=== PATIENT | male | born 1980 | race Two or more races ===

== ENCOUNTER 2024-11-06 00:25 | Inpatient (IN) | payer OTHER ==
[~2024-11-06] VITALS: Ht 162.6 cm; Wt 86.7 kg
[2024-11-06 00:26] VITALS: PULSE 34; RESP 11; O2SAT 92
--- NOTE | 2024-11-06 00:35 | ED.PDOC ---
History of Present Illness HPI Comments 44 year old male was BIBA for the c/c of [facility]. Per EMS pt has been sick all day with /D, when he experienced a syncopal episode after using the restroom. EMS notes that someone heard the pt fall and called emergency services. Upon arrival Pt was bradycardic in the 30s and was having 10 beats per minute. Pt has a PMHx of CKF and just received Dialysis yesterday. Pt denies any other associated symptoms, modifiers, recent injuries or sick contacts present at this time. Time Seen by MD: 00:29 Reviewed Notes: Nurses Notes, Junior Web Developer Notes, Medications, Allergies Information Source: Patient, Emergency Med Personnel Mode of Arrival: EMS Severity: Moderate Timing: Hours Duration: Since onset, Hours Prehospital treatment: Other (atropine) Past Medical History PAST MEDICAL HISTORY: CKF Surgical History: Denies all surgeries Family History Family History: Reviewed,noncontributory to illness, No family hx of Cancer, No family hx of DM, No family hx of Heart elliott, No family hx of HTN, No family hx ofKidney elliott, No family hx of Liver elliott, No family hx of Lung elliott, No family hx of Stroke Social History Smoker: Non-Smoker Alcohol: Denies ETOH Use Drugs: Denies Drug Use Lives In: Home Constitutional: denies: chills, diaphoresis, fatigue, fever, malaise, sweats, weakness, others EENTM: denies: blurred vision, double vision, ear bleeding, ear discharge, ear drainage, ear pain, ear ringing, eye pain, eye redness, hearing loss, mouth pain, mouth swelling, nasal discharge, nose bleeding, nose congestion, nose pain, photophobia, tearing, throat pain, throat swelling, voice changes, others Respiratory: denies: cough, hemoptysis, orthopnea, SOB at rest, shortness of breath, SOB with excertion, stridor, wheezing, others Cardiovascular: denies: chest pain, dizzy spells, diaphoresis, Dyspnea on exertion, edema, irregular heart beat, left arm pain, lightheadedness, palpitations, PND, syncope, others Gastrointestinal: reports: diarrhea; denies: abdomen distended, abdominal pain, blood streaked bowels, constipated, dysphagia, difficulty swallowing, hematemesis, melena, nausea, poor appetite, poor fluid intake, rectal bleeding, rectal pain, vomiting, others Genitourinary: denies: burning, dysuria, flank pain, frequency, hematuria, incontinence, penile discharge, penile sore, pain, testicle pain, testicle swelling, urgency, others Neurological: denies: dizziness, fainting, headache, left sided numbness, left sided weakness, numbness, paresthesia, pre-existing deficit, right sided numbness, right sided weakness, seizure, speech problems, tingling, tremors, weakness, others Musculoskeletal: denies: back pain, gout, joint pain, joint swelling, muscle pain, muscle stiffness, neck pain, others Integumetry: denies: bruises, change in color, change in hair/nails, dryness, laceration, lesions, lumps, rash, wounds, others Allergic/Immunocompromised: denies: Difficulty Healing, Frequent Infections, Hives, Itching, others Hematologic/Lymphatic: denies: anemia, blood clots, easy bleeding, easy brui sing, swollen glands, others Endocrine: denies: excessive hunger, excessive sweating, excessive thirst, ex cessive urination, flushing, intolerance to cold, intolerance to heat, unexplained weight gain, unexplained weight loss, others Psychiatric: denies: anxiety, bipolar disorder, depression, hopeless, panic disorder, schizophrenia, sleepless, suicidal, others All Other Systems: Reviewed and Negative Physical Exam General Appearance: Moderate Distress, Normal, Other (Chronic ill appearing) HEENT: Pharynx Normal, TMs Normal Neck: Full Range of Motion, Non-Tender, Normal, Normal Inspection Respiratory: Chest Non-Tender, Lungs Clear, Normal Breath Sounds Cardiovascular: No Edema, No JVD, Regular Rate/Rhythm Breast Exam: Deferred Gastrointestinal: Non Tender, Normal Bowel Sounds, Soft Genitalia: Deferred Pelvic: Deferred Rectal: Deferred Extremities: No calf tenderness, Normal range of motion, Non-tender, No pedal edema Musculoskeletal : Apperance: Normal Neurologic: Alert, No Motor Deficits, Normal Mood Cerebellar Function: Normal Reflexes: Normal Skin: Dry, Normal Color, Warm Lymphatic: No Adenopathy Was a procedure done? Was a procedure done?: No Differential Dx Considerations may include: Differential diagnosis includes but is not limited to: coronary ischemia, dehydration, sepsis, electrolyte abnormality, symptomatic anemia, hypovolemia and others X-Ray, Labs, Meds, VS Vital Signs Date Time Temp Pulse Resp B/P (MAP) Pulse Ox O2 Delivery O2 Flow Rate FiO2 11/06/24 02:30 75 11 111/57 (75) 98 11/06/24 01:45 17 Ambu-Bag 118 11/06/24 01:41 16 97 Nasal Cannula* 2 28 11/06/24 01:10 112 11/06/24 00:40 97.1 46 10 115/70 (85) 100 97.1 11/06/24 00:32 31 11/06/24 00:26 34 11 92 Room Air* 0 21 11/06/24 00:26 97.1 34 11 106/47 (66) 92 97.1 Lab Test 11/06/24 02:20 11/06/24 01:26 11/06/24 00:30 Range/Units Lactic Acid Level 1.6 2.7 *H 0.4-2.0 mmol/L Troponin I High Sensitivity 61 *H 54 </=54 ng/L White Blood Count 6.0 4.4-10.8 10^3/uL Red Blood Count 4.06 L 4.5-5.90 10^6/uL Hemoglobin 11.3 L 13.5-17.5 g/dL Hematocrit 35.7 L 41.0-53.0 % Mean Corpuscular Volume 88.0 80.0-100.0 fL Mean Corpuscular Hemoglobin 28.0 28.0-32.0 pg Mean Corpuscular Hemoglobin Concent 31.8 L 32.0-36.0 g/dL Red Cell Distribution Width 19.8 H 11.8-14.3 % Platelet Count 133 L 140-450 10^3/uL Mean Platelet Volume 7.6 6.9-10.8 fL Neutrophils (%) (Auto) 68.3 37.0-80.0 % Lymphocytes (%) (Auto) 16.5 10.0-50.0 % Monocytes (%) (Auto) 10.9 0.0-12.0 % Eosinophils (%) (Auto) 3.8 0.0-7.0 % Basophils (%) (Auto) 0.5 0.0-2.0 % Neutrophils # (Auto) 4.1 1.6-8.6 10 ^3/uL Lymphocytes # (Auto) 1.0 0.4-5.4 10 ^3/uL Monocytes # (Auto) 0.7 0-1.3 10 ^3/uL Eosinophils # (Auto) 0.2 0-0.8 10 ^3/uL Basophils # (Auto) 0 0-0.2 10 ^3/uL Nucleated Red Blood Cells 0.0 % Prothrombin Time 11.3 9.3-11.8 sec Prothrombin Time INR 1.07 0.9-1.15 Activated Partial Thromboplast Time 25.9 24.5-34.5 SEC Sodium Level 135 L 136-145 mmol/L Potassium Level 7.2 *H 3.5-5.1 mmol/L Chloride Level 99 98-107 mmol/L Carbon Dioxide Level 24 20-31 mmol/L Anion Gap 12 5-15 Blood Urea Nitrogen 67 H 9-23 mg/dL Creatinine 7.28 H 0.700-1.30 mg/dL Glomerular Filtration Rate Calc 9 >90 mL/min BUN/Creatinine Ratio 9.2 L 10.0-20.0 Serum Glucose 373 H 74-106 mg/dL Calcium Level 9.3 8.7-10.4 mg/dL Total Bilirubin 0.4 0.2-1.0 mg/dL Aspartate Amino Transferase (AST) 29 13-40 U/L Alanine Aminotransferase (ALT) 18 7-40 U/L Alkaline Phosphatase 164 H 46-116 U/L Total Protein 7.6 5.7-8.2 g/dL Albumin 4.4 3.2-4.8 g/dL Current Medications Medications (Trade) Dose Ordered Sig/Yovany Route Start Time Stop Time Status Last Admin Sodium Chloride 1,000 ml @ 1,000 mls/hr Q1H ONCE IVB 11/06/24 00:30 11/06/24 01:29 DC 11/06/24 00:47 Insulin Human Regular (InsuLIN R) 10 units ONCE ONCE IV 11/06/24 01:30 11/06/24 01:31 DC 11/06/24 01:50 Dextrose 50 ml ONCE ONCE IV 11/06/24 01:30 11/06/24 01:31 DC 11/06/24 01:50 Albuterol (Ventolin Medneb) 20 mg ONCE ONCE NEB 11/06/24 01:30 11/06/24 01:31 DC 11/06/24 01:41 Sodium Bicarbonate 50 ml ONCE ONCE IV 11/06/24 01:30 11/06/24 01:31 DC 11/06/24 01:50 Calcium Gluconate/ Sodium Chloride 50 ml @ 120 mls/hr ONCE ONCE IV 11/06/24 01:30 11/06/24 01:54 DC 11/06/24 01:27 PATIENT: ISAIAH CHAMBERS ACCT: [id number] UNIT: [id number] : 1980 LOC: ER ROOM / BED: / AGE / SEX: 44 / M ADM STATUS: REG ER SERVICE 002 ORDERING PHYSICIAN: ОЛЬГА QIU MD PROCEDURE(s): CXRP - CHEST PORTABLE REASON: SOB ORDER NUMBER(s): [id number], ACCESSION NUMBER(s): [id number] EXAM: XY CHEST PORTABLE CLINICAL HISTORY: SOB TECHNIQUE: Single AP view of the chest WID: COMPARISON: None FINDINGS: Lines and tubes: Defibrillator pad projects over the left chest. Right IJ central venous catheter with the tip projecting over the right atrium. Chest: Cardiomegaly with mild pulmonary vascular congestion. No pleural effusion, pneumothorax, or consolidation. The osseous structures are grossly intact. IMPRESSION: Mild cardiomegaly with mild pulmonary vascular congestion. Time of 1ST Reevaluation: 00:59 Reevaluation 1ST: Unchanged Patient Education/Counseling: Diagnosis, Treatment Family Education/Counseling: No Family Present Sepsis Sepsis Reasesment Focused Exam Orders: Laboratory Tests 11/06/24 00:30: Lactic Acid Level 2.7 11/06/24 02:20: Lactic Acid Level 1.6 Departure 1 Departure Time of Disposition: 02:55 Impression: Primary Impression: Syncope and collapse Additional Impressions: ESRD (end stage renal disease) on dialysis Hyperkalemia Arrhythmia Disposition: ADMITTED INPATIENT Condition: Critical Discharged With: Self Comments Cardiac Arrest with Severe Hyperkalemia Chief Complaint: Cardiac arrest with severe hyperkalemia History of Present Illness: 44-year-old male with end-stage renal disease on scheduled hemodialysis (Thursday/Thursday/Thursday) presents after collapse at his residence. The patient was found by EMS in a bradycardic and lethargic state with hypotension. Initial EKG showed sinus bradycardia with a heart rate of 35. During assessment, patient deteriorated into pulseless electrical activity requiring CPR for approximately 3-4 minutes. ROSC was achieved after administration of atropine and epinephrine. Laboratory studies revealed severe hyperkalemia (K+ 7.2) with significantly elevated BUN/Cr. Patient reports recent diarrhea. Of note, patient did receive his scheduled dialysis on Thursday. Review of Systems: Constitutional: Lethargy, collapse Cardiovascular: Bradycardia, cardiac arrest Gastrointestinal: Recent diarrhea All other systems: Unable to obtain due to patient condition Medications: Dialysis medications - specific details not available in liquefier Allergies: No known allergies documented Past Medical History: 1. End-stage renal disease on hemodialysis 2. Likely cardiomegaly (noted on current CXR) Past Surgical History: Likely dialysis access placement - details not available Social History: Lives in a trailer Dialysis compliance: Appears compliant with scheduled treatments Family History: Not available in liquefier Vital Signs: Initial presentation: Heart Rate: 35 (sinus bradycardia) Blood Pressure: Documented as 'low', specific values not provided Other vital signs not provided in liquefier Physical Exam: General: Lethargic on presentation Cardiovascular: Initially bradycardic, progressed to PEA arrest, after ROSC documented to have strong pulse Other exam details not provided in liquefier Lab Results: Potassium: 7.2 (critically elevated) BUN: 67 Creatinine: 7.3 Glucose: 373 Lactic acid: 2.7 Imaging and Other Relevant Results: EKG: Sinus bradycardia with heart rate of 35 Chest X-ray: Cardiomegaly with pulmonary vascular congestion Medical Decision Making: Summary Statement: 44-year-old ESRD patient presents with cardiac arrest secondary to severe hyperkalemia, requiring brief CPR with successful ROSC after ACLS interventions. Problem List: 1. Cardiac arrest 2. Severe hyperkalemia (K+ 7.2) 3. ESRD on hemodialysis 4. Acute diarrhea Differential Diagnosis: 1. Hyperkalemia-induced cardiac arrest 2. Uremia 3. Volume depletion from diarrhea 4. Medication effect 5. Primary cardiac event ED Course: Patient received immediate stabilization including CPR, atropine, and epinephrine for cardiac arrest. Upon identification of severe hyperkalemia, received IV calcium, insulin with glucose, and albuterol nebulizer for emergent management. Continuous cardiac monitoring maintained. Assessment and Plan: 1. Cardiac Arrest secondary to Severe Hyperkalemia - Stabilized with ACLS protocol and ROSC achieved - Emergency hyperkalemia treatment initiated with calcium, insulin/glucose, and albuterol - Requires urgent hemodialysis - Continuous cardiac monitoring 2. End-Stage Renal Disease - Will require coordination with nephrology for urgent dialysis - Recent diarrhea may have contributed to current presentation 3. Disposition - Admission to ICU for close monitoring and urgent dialysis - Nephrology and Cardiology consultations Billing Information: ICD-10: E87.5 - Hyperkalemia ICD-10: I46.2 - Cardiac arrest due to underlying cardiac condition ICD-10: N18.6 - End stage renal disease Critical Care Note Critical Care Time?: Yes (35 min-critical care time only) Critical care comment: Total critical care time: Approximately 36 minutes Due to a high probability of clinically significant, life threatening deterioration, the patient required my highest level of preparedness to intervene emergently and I personally spent this critical care time directly and personally managing the patient. This critical care time included obtaining a history; examining the patient; pulse oximetry; ordering and review of studies; arranging urgent treatment with development of a management plan; evaluation of patient's response to treatment; frequent reassessment; and, discussions with other providers. This critical care time was performed to assess and manage the high probability of imminent, life-threatening deterioration that could result in multi-organ failure. It was exclusive of separately billable procedures and treating other patients. Stability Stability form required: No Heart Score Heart Score: Heart Score Response (Comments) Value History Slightly Suspicious 0 EKG Repolarization Disturb 1 Age 45-64 1 Risk Factors 1 or 2 risk factors 1 Troponin 1-2 x's Normal limit 1 Total 4 I personally scribed for ОЛЬГА IQU MD ([email or web address]) on 11/06/24 at 00:35. Electronically submitted by Nahun Montgomery ([email or web address]). I personally scribed for ОЛЬГА QIU MD ([email or web address]) on 11/06/24 at 00:41. Electronically submitted by Nahun Montgomery ([email or web address]). I personally scribed for ОЛЬГА QIU MD ([email or web address]) on 11/06/24 at 02:44. Electronically submitted by Nahun Montgomery ([email or web address]). ОЛЬГА QIU MD November 06, 2024 00:35
[2024-11-06] MEDS: SODIUM CHLORIDE 0.9% 1,000 ML IVB ONE (00:47)
[2024-11-06 01:02] LABS: Basophils # (auto) 0 10 ^3/uL (0-0.2); Basophils % (auto) 0.5 % (0.0-2.0); Eosinophils # (auto) 0.2 10 ^3/uL (0-0.8); Eosinophils % (auto) 3.8 % (0.0-7.0); Hematocrit 35.7 % (41.0-53.0); Hemoglobin 11.3 g/dL (13.5-17.5); Lymphocytes % (auto) 16.5 % (10.0-50.0); Mean Corpuscular Hgb Conc. 31.8 g/dL (32.0-36.0); Monocytes # (auto) 0.7 10 ^3/uL (0-1.3); Monocytes % (auto) 10.9 % (0.0-12.0); Neutrophils # (auto) 4.1 10 ^3/uL (1.6-8.6); Neutrophils % (auto) 68.3 % (37.0-80.0); Platelet Count (auto) 133 10^3/uL (140-450); Red Blood Cells 4.06 10^6/uL (4.5-5.90); Red Cell Distribution Width 19.8 % (11.8-14.3)
[2024-11-06 01:16] LABS: INR 1.07 (0.9-1.15); Partial Thromboplastin Time 25.9 SEC (24.5-34.5); Prothrombin Time 11.3 sec (9.3-11.8)
[2024-11-06 01:18] LABS: Alanine Aminotransferase 18 U/L (7-40); Albumin 4.4 g/dL (3.2-4.8); Anion Gap 12 (5-15); Aspartate Aminotransferase 29 U/L (13-40); BUN/Creatinine Ratio 9.2 (10.0-20.0); Calcium 9.3 mg/dL (8.7-10.4); Carbon Dioxide 24 mmol/L (20-31); Chloride 99 mmol/L (98-107); Total Protein 7.6 g/dL (5.7-8.2)
[2024-11-06 01:19] LABS: Alkaline Phosphatase 164 U/L (46-116); Bilirubin, Total 0.4 mg/dL (0.2-1.0); Blood Urea Nitrogen 67 mg/dL (9-23); Glucose 373 mg/dL (74-106); Sodium 135 mmol/L (136-145)
[2024-11-06 01:20] LABS: Potassium 7.2 mmol/L (3.5-5.1)
[2024-11-06 01:21] LABS: Lactic Acid w/Reflex 2.7 mmol/L (0.4-2.0)
[2024-11-06] MEDS: CALCIUM GLUC 1,000mg/50ml-NS 50 ML IV ONE ×2 (01:27→13:08)
[2024-11-06] MEDS: ALBUTEROL SULF 2.5 MG/0.5ML(0.5%) NEB SOLN NEB ONE ×2 (01:41→05:21)
--- NOTE | 2024-11-06 01:45 | RESUS ---
CODE BLUE ASSESSSMENT History of Events History of Events: Pt observed to have pulse of 17 on ER montior without palpable carotid pulse, non-responsive, and agonal breathing. CPR initiated and CODE BLUE called. Initial Information Date: November 06, 2024 Time: 01:02 Location of Arrest: ER Arrest Witnessed: Yes CPR started initial time: 01:02 CPR started by whom: Hospital Staff Last seen well: 0100 Pre-Hospital Care: Pre-Code Care (inpatient) Type of arrest: Cardiac, Respiratory, Adult, Witnessed Spontaneous Respirations: No Pulse Present: No Monitoring: ECG, Pulse Oximetry, Telemetry Crash Cart Opened and Supplies: Yes Airway Ventilation Breathing at Onset: Agonal Oxygen Delivery Method: Ambu-Bag Time of first Assisted Ventila: 01:03 Artificial Ventilation: Bag/Mask Comments: Pt not intubated Circulation Circulation #1: Time: 01:02 Pulse Rate (adult): 17 Blood Pressure Systolic: 47 Blood Pressure Diastolic: 13 Circulation #2: Time: 01:05 Pulse Rate (adult): 118 Blood Pressure Systolic: 220 Blood Pressure Diastolic: 97 Circulation Comment: ROSC Procedure - IV Procedure - IV : IV Side: Left IV Location: Antecubital IV Catheter Type: Saline Lock IV Placed: Pre-Hospital (Placed by EMS) IV Gauge: 18 IV Line Care: Saline Flush Comment IV initiated via EMS prior to arrival to ER Medications & Response Medications and Responses #1: Medication Time: 01:02 ADULT Medications Given ADULT: Atropine 1 mg Route of Administration: IV Heart Rate: 17 EKG Rhythm: Junctional Blood Pressure Systolic: 47 Blood Pressure Diastolic: 13 Respiratory Rate: 2 Medications and Responses #2: Medication Time: 01:03 ADULT Medications Given ADULT: Epinephrine 1 mg Route of Administration: IV Heart Rate: 17 Nurses Notes Michelle Coma Scale Eye Opening: None (1) Michelle Coma Scale Verbal: None (1) Michelle Coma Scale Motor: Withdraws to Pain (4) Glascow Total: 6 Pupil Reaction: Sluggish Bedside Blood Glucose: 328 EKG Rhythm: Sinus Tachycardia (HR 112 @ 0110) Time Code Ended Time Code Ended: 01:05 Post Arrest Status: Awake, Spontaneous Breathing Outcome of code: Successful Code Team Present: Dr Nava DRISCOLL MD; Nirmala Laureano RN - Beaver Trapper; Nathan Marte RT; Dannielle Carrera RN; Junie Fernandez RN; Emilio Lopez RN; Kortney Carrera ERT Post Resuscitation Neurologica Pupil Size: 5 ROSC Time of ROSC: 01:05 Nirmala Parks November 06, 2024 01:45
[2024-11-06] MEDS: InsuLIN REG 1unit/0.01ml Soln (100units/ml) IV ONE ×3 (01:50→06:33)
[2024-11-06] MEDS: DEXTROSE (50%) 50ML SYRG IV ONE ×2 (01:50→06:32)
[2024-11-06] MEDS: SODIUM BICARB 8.4% 50Meq/50ml SYR INJ IV ONE (01:50)
--- NOTE | 2024-11-06 02:01 | DVH ---
EXAM: XY CHEST PORTABLE CLINICAL HISTORY: SOB TECHNIQUE: Single AP view of the chest WID: COMPARISON: None FINDINGS: Lines and tubes: Defibrillator pad projects over the left chest. Right IJ central venous catheter wi th the tip projecting over the right atrium. Chest: Cardiomegaly with mild pulmonary vascular congestion. No pleural effusion, pneumothorax, or consolidation. The osseous structures are grossly intact. IMPRESSION: Mild cardiomegaly with mild pulmonary vascular congestion.
[2024-11-06] MEDS: ATROPINE SULF 1 MG/10ml SYR IV ONE (05:30)
[2024-11-06] MEDS: DOPamine 1600MCG/ML D5W 250 ML IV ONE ×2 (05:30→05:44)
[2024-11-06] MEDS: ATROPINE SULF 0.5 MG/5ML SYR ONE (05:45)
[2024-11-06] MEDS: ATROPINE SULFATE 0.4 MG/1 ML VIAL IV ONE (05:45)
--- NOTE | 2024-11-06 06:31 | DVH ---
EXAM: CT HEAD WITHOUT CONTRAST INDICATION: ALOC / syncope fall TECHNIQUE: CT of the head without intravenous contrast. Radiation Dose : 1. Head: CT Dose: CTDI volume is 60 mGy. Dose-length product is 1057 mGy*cm The dose indicators for CT are the volume Computed Tomography (CT) Dose Index (CTDIvol) and the Dose Length Product (DLP), and are measured in units of mGy and mGy-cm, respectively. These indicators are not patient dose, but values generated from the CT scanner acquisition factors. The report includes radiation exposure data for exposures received during this examination. COMPARISON: None FINDINGS: There is no evidence of acute intracranial hemorrhage, extra-axial collection, mass effect, midline s hift, herniation or hydrocephalus. The ventricles, sulci and cisterns are age appropriate. The day-white differentiation is intact. The visualized paranasal sinuses and mastoid air cells are clear. The surrounding soft tissues and osseous structures are unremarkable. IMPRESSION: No acute intracranial abnormality. Radiation optimization: All CT scans at this facility use at least one of these dose optimization scott hniques: automated exposure control mA and/or kV adjustment per patient size (includes targeted exam s where dose is matched to clinical indication) or iterative reconstruction.
[2024-11-06] MEDS: FUROSEMIDE 20 MG/2 ML VIAL IV ONE (06:32)
[2024-11-06] MEDS: ONDANSETRON HCL 4 MG/2 ML VIAL IV ONE (06:32)
[2024-11-06] MEDS: SODIUM BICARB 8.4% 50Meq/50ml SYR Vial IV ONE (06:33)
--- NOTE | 2024-11-06 06:43 | ECG ---
[facility] Test Date: 2024-11-06 Test Time: 00:32:48 Pat Name: ISAIAH CHAMBERS Department: ED Room: 0271T Gender: M Collaborative Teacher: : 1980 Requested By: ОЛЬГА QIU Order Number: [id number] Reading MD: Bishnu Styles Measurements Intervals [place] Rate: 31 P: 0 [place]: 0 QRS: 74 QRSD: 113 T: 85 QT: 630 QTc: 453 Interpretive Statements Junctional rhythm LVH with secondary repolarization abnormality Anterior ST elevation, probably due to LVH Electronically Signed On 11-07-2024 12:13:24 PDT by Bishnu Styles Please click the below link to view image of tracing.
[2024-11-06 07:15] VITALS: PULSE 54; RESP 17; O2SAT 96
--- NOTE | 2024-11-06 07:29 | DVHHP2 ---
History of Present Illness Reason for Visit: ALOC History of Present Illness A 44-year-old male presented in the ED via EMS with altered mental status. According to the patient, he had experienced multiple episodes of diarrhea the day prior. While using the restroom he had a syncopal episode. There was no preceding chest pain or shortness of breath. In the emergency department, the patient was found to be in junctional rhythm with heart rate in the 30s. Labs revealed hyperkalemia with potassium level of 7.0 mmm/L. During the night, the patient experienced a cardiac arrest. One round of epinephrine was administered, returned of spontaneous circulation was achieved after 1 minute of CPR. Post resuscitation, the patient is alert and oriented on supplemental oxygen and denies chest pain dyspnea or other acute symptoms. Past medical history of chronic kidney disease on hemodialysis MWF, diabetes type 2, hypertension, and hyperlipidemia. Past Medical History As stated in HPI Past Surgical History Denies Family History Reviewed, non-contributory to the management of this case. Past Social History The patient lives at home, denies smoking, alcohol or illicit drugs abuse. Review of Systems Constitutional: Yes: Weakness, Malaise; No: Fever, Chills, Sweats, Other Eyes: No: Pain, Vision change, Conjunctivae inflammation, Eyelid inflammation, Other, Redness ENT: No: Ear pain, Ear discharge, Nose pain, Nose discharge, Nose congestion, Mouth pain, Mouth swelling, Throat pain, Throat swelling, Other Respiratory: No: Cough, Dry, Shortness of breath, SOB with excertion, Wheezing, Hemoptysis, Pleuritic Pain, Sputum, Wheezing, Other Cardiovascular: No: Chest Pain, Palpitations, Orthopnea, Paroxysmal Noc. Dyspnea, Edema, Lt Headedness, Other Gastrointestinal: No: Nausea, Vomiting, Abdominal Pain, Diarrhea, Constipation, Melena, Hematochezia, Other Genitourinary: No Dysuria, No Frequency, No Incontinence, No Hematuria, No Retention, No Other Musculoskeletal: No: other, neck pain, shoulder pain, arm pain, back pain, hand pain, leg pain, foot pain Skin: No: Rash, Lesions, Jaundice, Bruising, Other Neurological: Confusion, Other (Syncope) Allergies: Coded Allergies: No Known Drug Allergy (Verified Allergy, Unknown, 11/06/24) Medications Current Medications Medications Dose Ordered Sig/Yovany Route Start Time Stop Time Status Last Admin Dose Admin Ondansetron HCl 4 mg Q4HP PRN IV 11/06/24 07:30 UNV Enoxaparin Sodium 40 mg DAILY SC 11/06/24 10:00 UNV Nitroglycerin 0.4 mg Q5MINP PRN SL 11/06/24 07:30 UNV Morphine Sulfate 2 mg Q30M PRN IV 11/06/24 07:30 UNV Azithromycin 250 ml @ 125 mls/hr DAILY IV 11/07/24 10:00 UNV Ceftriaxone Sodium 50 ml @ 100 mls/hr DAILY@09 IV 11/07/24 09:00 UNV Exam Vital Signs Vital Signs Date Time Temp Pulse Resp B/P (MAP) Pulse Ox O2 Delivery O2 Flow Rate FiO2 11/06/24 07:15 54 17 96 Nasal Cannula* 2 28 11/06/24 07:15 98.2 110/47 (68) 98.2 General Appearance: Alert, Oriented X3, No acute distress HEENT: Atraumatic, PERRLA, EOMI Respiratory: Clear to auscultation, Normal air movement Cardiovascular: Normal S1 (Junctional rhythm) Abdominal: Normal bowel sounds, Soft, No tenderness Extremities: No clubbing, No cyanosis, No edema Skin: No rashes, No breakdown, No significant lesion Neuro: Normal speech, Strength at / X4 ext Psych/Mental Status: Mental status NL Labs/Xrays Labs Test 11/06/24 05:53 11/06/24 05:28 11/06/24 03:25 11/06/24 02:20 Range/Units Potassium Level 7.7 *H 3.5-5.1 mmol/L POC Glucose 282 H 70-106 mg/dl Troponin I High Sensitivity 60 *H </=54 ng/L Lactic Acid Level 1.6 0.4-2.0 mmol/L Test 11/06/24 00:30 Range/Units White Blood Count 6.0 4.4-10.8 10^3/uL Red Blood Count 4.06 L 4.5-5.90 10^6/uL Hemoglobin 11.3 L 13.5-17.5 g/dL Hematocrit 35.7 L 41.0-53.0 % Mean Corpuscular Volume 88.0 80.0-100.0 fL Mean Corpuscular Hemoglobin 28.0 28.0-32.0 pg Mean Corpuscular Hemoglobin Concent 31.8 L 32.0-36.0 g/dL Red Cell Distribution Width 19.8 H 11.8-14.3 % Platelet Count 133 L 140-450 10^3/uL Mean Platelet Volume 7.6 6.9-10.8 fL Neutrophils (%) (Auto) 68.3 37.0-80.0 % Lymphocytes (%) (Auto) 16.5 10.0-50.0 % Monocytes (%) (Auto) 10.9 0.0-12.0 % Eosinophils (%) (Auto) 3.8 0.0-7.0 % Basophils (%) (Auto) 0.5 0.0-2.0 % Neutrophils # (Auto) 4.1 1.6-8.6 10 ^3/uL Lymphocytes # (Auto) 1.0 0.4-5.4 10 ^3/uL Monocytes # (Auto) 0.7 0-1.3 10 ^3/uL Eosinophils # (Auto) 0.2 0-0.8 10 ^3/uL Basophils # (Auto) 0 0-0.2 10 ^3/uL Nucleated Red Blood Cells 0.0 % Prothrombin Time 11.3 9.3-11.8 sec Prothrombin Time INR 1.07 0.9-1.15 Activated Partial Thromboplast Time 25.9 24.5-34.5 SEC Sodium Level 135 L 136-145 mmol/L Chloride Level 99 98-107 mmol/L Carbon Dioxide Level 24 20-31 mmol/L Anion Gap 12 5-15 Blood Urea Nitrogen 67 H 9-23 mg/dL Creatinine 7.28 H 0.700-1.30 mg/dL Glomerular Filtration Rate Calc 9 >90 mL/min BUN/Creatinine Ratio 9.2 L 10.0-20.0 Serum Glucose 373 H 74-106 mg/dL Calcium Level 9.3 8.7-10.4 mg/dL Total Bilirubin 0.4 0.2-1.0 mg/dL Aspartate Amino Transferase (AST) 29 13-40 U/L Alanine Aminotransferase (ALT) 18 7-40 U/L Alkaline Phosphatase 164 H 46-116 U/L Total Protein 7.6 5.7-8.2 g/dL Albumin 4.4 3.2-4.8 g/dL ROCEDURE(s): CXRP - CHEST PORTABLE REASON: SOB ORDER NUMBER(s): [id number], ACCESSION NUMBER(s): [id number] EXAM: XY CHEST PORTABLE CLINICAL HISTORY: SOB TECHNIQUE: Single AP view of the chest WID: COMPARISON: None FINDINGS: Lines and tubes: Defibrillator pad projects over the left chest. Right IJ central venous catheter with the tip projecting over the right atrium. Chest: Cardiomegaly with mild pulmonary vascular congestion. No pleural effusion, pneumothorax, or consolidation. The osseous structures are grossly intact. IMPRESSION: Mild cardiomegaly with mild pulmonary vascular congestion. Assessment/Plan Assessment/Plan # acute metabolic encephalopathy, now alert and oriented # syncope and collapse to rule out cardiac etiology # rule out carotid stenosis Admit to ICU Cardiology consult Echo Carotid Doppler Neuro checks Check UDS # s/p CPR with ROSC # bradycardia/ junctional rhythm in30s # Elevated troponin, likely demand ischemia Continue with dopamine drip for heart rate support Cardiology consult Echocardiogram # cardiomegaly with mild pulmonary vascular congestion # possible pneumonia Empiric antibiotic ceftriaxone and azithromycin until culture is back Panculture Breathing treatment p.r.n. O2 supplement # ESRD on HD # hyperkalemia Hyperkalemia protocol Nephrology consult # hypertension Monitor BP avoid antihypertensive medication given soft BP # diabetes type 2 Insulin sliding scale Check A1c # hyperlipidemia Continue with statins check lipid panel DVT prophylaxis Medical plan discussed with patient, spouse, and RN at bedside Plan discussed with: Patient My Orders Orders - SUSAN SPENCER [employer] Procedure Category Date Status Time Admit ADMIT 11/06/24 Transmitted 07:19 Code Status CODE 11/06/24 Transmitted 07:19 Ondansetron Hcl PHA 11/06/24 Logged (Zofran) 07:30 Enoxaparin Sodium PHA 11/06/24 Logged (Lovenox) 10:00 Fall Risk Precautions NIHARIKA 11/06/[address] 07:19 Complete Blood Count LAB 11/07/24 Verified 04:00 Comprehensive LAB 11/07/24 Verified Metabolic Panel 04:00 Echo 2d Mode Cardiac US 11/06/24 Logged DOP 07:19 Carotid Duplx W Color US 11/06/24 Logged DOP 07:19 Condition: Critical NIHARIKA 11/06/24 In Process 07:19 Nitroglycerin PHA 11/06/24 Logged Sublingual (Ntrostat 07:30 Morphine Sulfate PHA 11/06/24 Logged Injection 07:30 Stat Ekg For Chest NIHARIKA 11/06/24 In Process Pain 07:19 Notify Md Of Changes NIHARIKA 11/06/24 In Process From Base 07:19 Roll Forming Machine Set Up Operator For [facility] 11/06/24 In Process 24 Hours 07:19 Emergency Dysrhythmia NIHARIKA 11/06/24 In Process Protocol 07:19 Rhythm Strips Once NIHARIKA 11/06/24 In Process Every Shift 07:19 Oxygen By Nasal RT 11/06/24 Transmitted Cannula 07:19 Urinalysis LAB 11/06/24 Logged 07:22 Urine Bacterial EMEKA 11/06/24 Logged Culture 07:22 Drug Screen LAB 11/06/24 Logged 07:22 Respiratory Culture EMEKA 11/06/24 Logged W/ Gs 07:22 Azithromycin 500mg/ PHA 11/06/24 Logged 250ml (Zithromax 50 07:30 Azithromycin 500mg/ PHA 11/07/24 Logged 250ml (Zithromax 50 10:00 Ceftriaxone 1gm/50ml PHA 11/06/24 Logged D5w (Rocephin) 07:30 Ceftriaxone 1gm/50ml PHA 11/07/24 Logged D5w (Rocephin) 09:00 Lipid Panel LAB 11/06/24 Logged 07:22 Thyroid Stimulating LAB 11/06/24 Logged Hormone 07:22 Hemoglobin A1c LAB 11/06/24 Logged 07:22 B-Type Natriuretic LAB 11/06/24 Logged Peptide 07:22 Potassium LAB 11/06/24 Logged 12:00 * Cardiology Consult CONS 11/06/24 Transmitted 07:27 Date of Service: November 06, 2024 Billing Provider: SUSAN SPENCERP Common Visit Codes: [id number] INP/OBS CARE (HIGH) Consultation Codes: [id number] CONSULT <60MIN SUSAN SPENCER [employer] November 06, 2024 07:29
[2024-11-06] MEDS ORDERED: AZITHROMYCIN 500MG/ 250ML 250 ML IV ONE (07:30)
[2024-11-06] MEDS ORDERED: NITROGLYCERIN 0.4 MG SL TAB SL PRN (07:30)
[2024-11-06] MEDS: cefTRIAXone 1GM/50ML D5W 50 ML IV ONE (07:43)
[2024-11-06] MEDS ORDERED: DEXTROSE (50%) 50ML SYRG IV PRN (08:00)
[2024-11-06 08:01] LABS: LDL Cholesterol 48 mg/dL (< 100)
[2024-11-06 08:03] LABS: Cholesterol 99 mg/dL (< 200); HDL Cholesterol 32 mg/dL (40-59); Triglycerides 155 mg/dL (< 150)
[2024-11-06] MEDS: AZITHROMYCIN 500MG/ 250ML 250 ML IV ONE (08:26)
[2024-11-06] MEDS: ONDANSETRON HCL 4 MG/2 ML VIAL IV PRN (08:49)
[2024-11-06] MEDS: ENOXAPARIN SOD 30 MG/0.3 ML SYRINGE SC SCH (10:09)
[2024-11-06] MEDS: ASPirin 81 mg TAB PO SCH (10:09)
--- NOTE | 2024-11-06 11:14 | DVHINCON2 ---
Date Seen: November 06, 2024 Referring Physician SCARLETT Dan Reason for Consultation Syncope History of Present Illness This is a 44-year-old man who presented to the emergency room via EMS with a chief complaint of ALOC. At time of assessment the patient was found very lethargic and A&O x3. Information was obtained from at bedside who stated the patient developed diarrhea last night for which he attended the bathroom and soon after complaining of not feeling well with hearing him falling which prompted her to call 911. States he develops diarrhea whenever he experiences hyperkalemia and denying missed HD treatments with latest completed on Thursday. Upon EMS arrival, he was found to be bradycardic for which he was administered atropine 0.5 mg and NS x 1000 mLs and with BGL of 356 mg/dL. Upon arrival to the emergency room he underwent a 12 lead electrocardiogram revealing a junctional rhythm 31 bpm with worsening symptoms including a loss of pulse and agonal breathing for which a CODE Blue was activated with the patient receiving atropine and epinephrine (see code sheet report). He is currently on a Dopamine drip with a HR fluctuating in between 40s-50s bpm. Latest potassium level is 7.7 for which it was addressed. Denies any cardiac symptoms. Significant medical history includes hypertension on metoprolol, insulin-dependent diabetes mellitus, dyslipidemia, and end-stage renal disease on hemodialysis on . Past Medical History Past medical history reviewed. No other significant than mentioned above. Past Surgical History Hemodialysis access Family History Family history reviewed. Social History Denies the use of illicit drugs, alcohol, or tobacco use. Allergies: Coded Allergies: No Known Drug Allergy (Verified Allergy, Unknown, 11/06/24) Home Meds Home medications reviewed. Current Medications Current Medications Medications (Trade) Dose Ordered Sig/Yovany Route PRN Reason Start Time Stop Time Status Last Admin Ondansetron HCl (Zofran) 4 mg Q4HP PRN IV NAUSEA / VOMITING 11/06/24 07:30 11/06/24 08:49 Enoxaparin Sodium (Lovenox) 30 mg DAILY SC 11/06/24 10:00 11/06/24 10:09 Nitroglycerin (Ntrostat Sublingual) 0.4 mg Q5MINP PRN SL FOR CHEST PAIN 11/06/24 07:30 Morphine Sulfate 2 mg Q30M PRN IV FOR CHEST PAIN 11/06/24 07:30 Azithromycin 250 ml @ 125 mls/hr DAILY IV 11/07/24 10:00 Ceftriaxone Sodium 50 ml @ 100 mls/hr DAILY@09 IV 11/07/24 09:00 Diagnostic Test (Pha) (Accu-Chek Comfort Curve T) 1 strip Q6HR 11/06/24 12:00 Insulin Human Regular (InsuLIN R) Q6HR SC 11/06/24 12:00 Dextrose 50 ml UD PRN IV Blood Sugar LESS THAN 60 11/06/24 08:00 Aspirin 81 mg DAILY PO 11/06/24 10:00 11/06/24 10:09 Atorvastatin Calcium (Lipitor) 40 mg HS PO 11/06/24 22:00 Review of Systems Constitutional: Generalized weakness Ears, Nose, & Throat: No symptom reported Eyes: No symptom reported Neurological: Syncope Pulmonary/Respiratory: No symptom reported Cardiovascular: No symptom reported Gastrointestinal: Diarrhea Genitourinary: No symptom reported Musculoskeletal: No symptom reported Skin: No symptom reported Psychiatric: No symptom reported Endocrine: No symptom reported Hemotologic/Lymphatic: No symptom reported Vital Signs Vital Signs Date Time Temp Pulse Resp B/P (MAP) Pulse Ox O2 Delivery O2 Flow Rate FiO2 11/06/24 09:00 98.2 47 20 119/55 (76) 95 98.2 11/06/24 07:15 Nasal Cannula* 2 28 Physical Exam General Appearance: Cooperative. Very lethargic. In no acute distress Head Exam: Normal inspection Neck Exam: Normal inspection. Non-tender. Normal alignment Pulmonary/Respiratory: Chest non-tender. Crackles to bilateral breath sounds Cardiovascular/Chest: Regular rate and rhythm. S1, S2. Sinus bradycardia. No murmurs. No JVD. Peripheral Pulses: 2+ Radial (R). 2+ Radial (L). 2+ Pedal (R). 2+ Pedal (L) Abdominal Exam: Normal bowel sounds. Soft. Ankle Exam: Negative ankle edema Lower extremities: Negative lower extremity edema Neuro/Mental Status: A&O x3. Coherent Thoughts/Psych: Normal thought pattern. Appropriate mood and affect. Appearance: Very lethargic Skin Exam: Normal inspection. Normal color. Warm. Dry Labs/Diagnostic Data Labs Test 11/06/24 05:53 11/06/24 05:28 11/06/24 03:25 11/06/24 02:20 Range/Units Potassium Level 7.7 *H 3.5-5.1 mmol/L POC Glucose 282 H 70-106 mg/dl Troponin I High Sensitivity 60 *H </=54 ng/L Thyroid Stimulating Hormone (TSH) 4.56 0.55-4.78 uIU/mL Lactic Acid Level 1.6 0.4-2.0 mmol/L Test 11/06/24 01:26 11/06/24 00:30 Range/Units Triglycerides Level 155 H < 150 mg/dL Cholesterol Level 99 < 200 mg/dL LDL Cholesterol 48 < 100 mg/dL HDL Cholesterol 32 L 40-59 mg/dL White Blood Count 6.0 4.4-10.8 10^3/uL Red Blood Count 4.06 L 4.5-5.90 10^6/uL Hemoglobin 11.3 L 13.5-17.5 g/dL Hematocrit 35.7 L 41.0-53.0 % Mean Corpuscular Volume 88.0 80.0-100.0 fL Mean Corpuscular Hemoglobin 28.0 28.0-32.0 pg Mean Corpuscular Hemoglobin Concent 31.8 L 32.0-36.0 g/dL Red Cell Distribution Width 19.8 H 11.8-14.3 % Platelet Count 133 L 140-450 10^3/uL Mean Platelet Volume 7.6 6.9-10.8 fL Neutrophils (%) (Auto) 68.3 37.0-80.0 % Lymphocytes (%) (Auto) 16.5 10.0-50.0 % Monocytes (%) (Auto) 10.9 0.0-12.0 % Eosinophils (%) (Auto) 3.8 0.0-7.0 % Basophils (%) (Auto) 0.5 0.0-2.0 % Neutrophils # (Auto) 4.1 1.6-8.6 10 ^3/uL Lymphocytes # (Auto) 1.0 0.4-5.4 10 ^3/uL Monocytes # (Auto) 0.7 0-1.3 10 ^3/uL Eosinophils # (Auto) 0.2 0-0.8 10 ^3/uL Basophils # (Auto) 0 0-0.2 10 ^3/uL Nucleated Red Blood Cells 0.0 % Prothrombin Time 11.3 9.3-11.8 sec Prothrombin Time INR 1.07 0.9-1.15 Activated Partial Thromboplast Time 25.9 24.5-34.5 SEC Sodium Level 135 L 136-145 mmol/L Chloride Level 99 98-107 mmol/L Carbon Dioxide Level 24 20-31 mmol/L Anion Gap 12 5-15 Blood Urea Nitrogen 67 H 9-23 mg/dL Creatinine 7.28 H 0.700-1.30 mg/dL Glomerular Filtration Rate Calc 9 >90 mL/min BUN/Creatinine Ratio 9.2 L 10.0-20.0 Serum Glucose 373 H 74-106 mg/dL Hemoglobin A1c 7.6 H <5.7 % A1C Calcium Level 9.3 8.7-10.4 mg/dL Total Bilirubin 0.4 0.2-1.0 mg/dL Aspartate Amino Transferase (AST) 29 13-40 U/L Alanine Aminotransferase (ALT) 18 7-40 U/L Alkaline Phosphatase 164 H 46-116 U/L B-Type Natriuretic Peptide 792.19 0-100 pg/mL Total Protein 7.6 5.7-8.2 g/dL Albumin 4.4 3.2-4.8 g/dL Assessment Profound bradycardia secondary to hyperkalemia Syncope/collapse/sinus arrest secondary to above NSTEMI, likely type 2 secondary to above Rule out structural heart disease Pulmonary hypertension, moderate degree Cardiorenal syndrome type 4 Independent diabetes mellitus Dyslipidemia ESRD on HD Plan/Recommendation (Dr. Dewitt) The patient presented with syncope and sinus arrest events secondary to severe hyperkalemia. Consider STAT hemodialysis treatment at first available. Continue dopamine drip for chronotropic response for a target heart rate >50 bpm. Avoid AV francisco blocking agents (takes BB at home). In the setting of an unremarkable transthoracic echocardiogram, there is no further cardiac workup indicated at this time. Thank you for allowing us to participate in this patient's care. Please call if you have any questions or concerns. Critical care time: 50 min. This medical document was created using an electronic medical record system with voice recognition software and computerized dictation system. Although this document has been carefully reviewed, there might still be some phonetic and typographical errors. Occasional wrong-word or ``sound-alike substitutions may have occurred due to the inherent limitations of voice recognition software. These areas are purely typographical due to imperfections of the software programs and do not reflect any compromise in the patient's medical care. Please read the chart carefully and recognize, using context, where these substitutions have occurred. Plan discussed with: Patient, Spouse, Other NYHA Physical activity limitations: NA Date of Service: November 06, 2024 Billing Provider: JOSE YA Cardiology Common Codes: [id number] CARE 30-74 MIN JOSE YA November 06, 2024 11:14
[2024-11-06] MEDS: InsuLIN REG 1unit/0.01ml Soln (100units/ml) SC SCH (12:01)
[2024-11-06] MEDS: ACCU-CHEK COMFORT CURVE STRIP VI SCH (12:03)
--- NOTE | 2024-11-06 12:47 | DVH ---
Indication: Syncope Technique: Real-time ultrasound images of the neck vessels with day-scale, color and wave Doppler we re obtained. Comparison: None Findings: Mild atherosclerotic plaque bilaterally The following peak systolic velocities were recorded in cm/sec: Right internal carotid: 85 Right common carotid: 100 Right external carotid: 96 Right internal/common carotid ratio: 0.8 Left internal carotid: 72 Left common carotid: 93 Left external carotid: 88 Left internal/common carotid ratio: 0.8 Right vertebral artery: Patent with normal antegrade direction of flow. Left vertebral artery: Patent with normal antegrade direction of flow. Impression: 1. No hemodynamically significant stenosis by velocity criteria. 2. Mild atherosclerotic plaque.
[2024-11-06 13:00] VITALS: PULSE 41; RESP 16; O2SAT 96
--- NOTE | 2024-11-06 13:17 | DVHSR ---
APPROVED REPORT EXAM: Two-dimensional and M-mode echocardiogram with Doppler and color Doppler. Blood Pressure: 110/47 mmHg INDICATION Syncope and collapse RISK FACTORS Height: 64, Weight: 160 DIMENSIONS LVDd4.2 (3.8-5.7cm)LA (2D)4.1 (1.9-4.0cm)Aortic Root3.5 (2.0-3.7cm) LVDs2.6 (2.5-4.0cm)LA (MM) (1.9-4.0cm)Aortic Cusp Exc1.5 (1.5-2.0cm) EF (%) 68.0 (55-70%)Rt. Atrium5.6 (1.9-4.0cm)Asc. Aorta cm IVSd1.8 (0.7-1.1cm)RV (D) (1.8-2.4cm) PWd1.8 (0.7-1.1cm) Mitral Valve MitralMitral Stenosis E wave1.11m/sMV Mean GR.mmHg A wave0.28m/sMV Peak GR.59mmHg E/A ratio4.02D MVAcm2 DECEL [id number] 1/2 Timems Aortic Valve Aortic ValveAortic Stenosis V11.09m/Skye Mean GR.5mmHg V21.37m/Skye Peak GR.8mmHg LVOT Diameter1.6 (1.8-2.4cm)Doppler AVA1.60cm2 Pulmonic Valve V20.81m/s Tricuspid Valve TR Velocity2.63m/s [id number] Other Information Technically limited study due to body habitus and slow heart rate. Patient moving during exam Conclusion Left ventricle: Concentric left ventricle hypertrophy was seen. LVF was around 65%. There was no gr oss wall motion abnormality. Right ventricle was mildly dilated no now systolic function. Both atria were dilated. Aortic valve: Aortic valve was trileaflet. There was no aortic insufficiency/stenosis. There was mi ld mitral/tricuspid/pulmonary valve regurgitation. Right ventricular systolic pressure was assessed at 43 mm Hg. There was no pericardial effusion.
[2024-11-06] MEDS ORDERED: ATROPINE SULF 1 MG/10ml SYR IV ONE (14:42)
--- NOTE | 2024-11-06 15:02 | DVHINCON2 ---
Date of service: November 06, 2024 Referring Physician Roxanne Dan NP Reason for Consultation ESRD History of Present Illness Mr. Gonzales is a 44-year-old male with known history of ESRD who presented for further evaluation and management of generalized weakness. Most of the history was obtained through the patient's daughter was at the bedside and through the electronic health record. Patient's daughter states that patient is from [facility] and was visiting locally. She endorses that the patient experienced loose nonbloody stool for one day prior to admission. His course in the emergency department notable for Eric dysrhythmia, hyperkalemia. Reported transient cardiac arrest with ROSC within 1 minute of CPR. He has received medical therapy for his hyperkalemia, he is currently seen on dialysis. Hemodialysis nurses at bedside. Past Medical History ESRD Diabetes Allergies: Coded Allergies: No Known Drug Allergy (Verified Allergy, Unknown, 11/06/24) Current Medications Current Medications Medications (Trade) Dose Ordered Sig/Yovany Route PRN Reason Start Time Stop Time Status Last Admin Ondansetron HCl (Zofran) 4 mg Q4HP PRN IV NAUSEA / VOMITING 11/06/24 07:30 11/06/24 08:49 Enoxaparin Sodium (Lovenox) 30 mg DAILY SC 11/06/24 10:00 11/06/24 10:09 Nitroglycerin (Ntrostat Sublingual) 0.4 mg Q5MINP PRN SL FOR CHEST PAIN 11/06/24 07:30 Morphine Sulfate 2 mg Q30M PRN IV FOR CHEST PAIN 11/06/24 07:30 Azithromycin 250 ml @ 125 mls/hr DAILY IV 11/07/24 10:00 Ceftriaxone Sodium 50 ml @ 100 mls/hr DAILY@09 IV 11/07/24 09:00 Diagnostic Test (Pha) (Accu-Chek Comfort Curve T) 1 strip Q6HR 11/06/24 12:00 11/06/24 12:03 Insulin Human Regular (InsuLIN R) Q6HR SC 11/06/24 12:00 11/06/24 12:01 Dextrose 50 ml UD PRN IV Blood Sugar LESS THAN 60 11/06/24 08:00 Aspirin 81 mg DAILY PO 11/06/24 10:00 11/06/24 10:09 Atorvastatin Calcium (Lipitor) 40 mg HS PO 11/06/24 22:00 Review of Systems Unable to be obtained due to patient's lethargy currently. H&P Exam Vital Signs/I&O Vital Sign Date Time Temp Pulse Resp B/P (MAP) Pulse Ox O2 Delivery O2 Flow Rate FiO2 11/06/24 14:15 53 14 175/83 (113) 98 11/06/24 13:00 98.0 98.0 11/06/24 13:00 Nasal Cannula* 4 36 Intake and Output 11/05/24 11/06/24 19:00 07:00 Intake Total 1050 ml Balance 1050 ml Intake IV Total 1050 ml Physical Exam Gen: nad heent: nc/at, mmm, right side IJ tunneled dialysis catheter lungs: Occasional rhonchi cvs: Bradycardic abd: soft, bowel sounds audible ext: no edema skin: no rash neuro: Somnolent, arousable Labs/Diagnostic Data Labs/Diagnostic Data Laboratory Tests Test 11/06/24 12:01 11/06/24 11:57 11/06/24 05:53 11/06/24 05:28 Range/Units Potassium Level 8.9 *H 7.7 *H 3.5-5.1 mmol/L POC Glucose 359 H 282 H 70-106 mg/dl Test 11/06/24 04:49 11/06/24 03:25 11/06/24 02:20 11/06/24 01:26 Range/Units POC Glucose 305 H 70-106 mg/dl Troponin I High Sensitivity 60 *H 61 *H </=54 ng/L Thyroid Stimulating Hormone (TSH) 4.56 0.55-4.78 uIU/mL Lactic Acid Level 1.6 0.4-2.0 mmol/L Triglycerides Level 155 H < 150 mg/dL Cholesterol Level 99 < 200 mg/dL LDL Cholesterol 48 < 100 mg/dL HDL Cholesterol 32 L 40-59 mg/dL Test 11/06/24 00:30 Range/Units White Blood Count 6.0 4.4-10.8 10^3/uL Red Blood Count 4.06 L 4.5-5.90 10^6/uL Hemoglobin 11.3 L 13.5-17.5 g/dL Hematocrit 35.7 L 41.0-53.0 % Mean Corpuscular Volume 88.0 80.0-100.0 fL Mean Corpuscular Hemoglobin 28.0 28.0-32.0 pg Mean Corpuscular Hemoglobin Concent 31.8 L 32.0-36.0 g/dL Red Cell Distribution Width 19.8 H 11.8-14.3 % Platelet Count 133 L 140-450 10^3/uL Mean Platelet Volume 7.6 6.9-10.8 fL Neutrophils (%) (Auto) 68.3 37.0-80.0 % Lymphocytes (%) (Auto) 16.5 10.0-50.0 % Monocytes (%) (Auto) 10.9 0.0-12.0 % Eosinophils (%) (Auto) 3.8 0.0-7.0 % Basophils (%) (Auto) 0.5 0.0-2.0 % Neutrophils # (Auto) 4.1 1.6-8.6 10 ^3/uL Lymphocytes # (Auto) 1.0 0.4-5.4 10 ^3/uL Monocytes # (Auto) 0.7 0-1.3 10 ^3/uL Eosinophils # (Auto) 0.2 0-0.8 10 ^3/uL Basophils # (Auto) 0 0-0.2 10 ^3/uL Nucleated Red Blood Cells 0.0 % Prothrombin Time 11.3 9.3-11.8 sec Prothrombin Time INR 1.07 0.9-1.15 Activated Partial Thromboplast Time 25.9 24.5-34.5 SEC Sodium Level 135 L 136-145 mmol/L Potassium Level 7.2 *H 3.5-5.1 mmol/L Chloride Level 99 98-107 mmol/L Carbon Dioxide Level 24 20-31 mmol/L Anion Gap 12 5-15 Blood Urea Nitrogen 67 H 9-23 mg/dL Creatinine 7.28 H 0.700-1.30 mg/dL Glomerular Filtration Rate Calc 9 >90 mL/min BUN/Creatinine Ratio 9.2 L 10.0-20.0 Serum Glucose 373 H 74-106 mg/dL Hemoglobin A1c 7.6 H <5.7 % A1C Lactic Acid Level 2.7 *H 0.4-2.0 mmol/L Calcium Level 9.3 8.7-10.4 mg/dL Total Bilirubin 0.4 0.2-1.0 mg/dL Aspartate Amino Transferase (AST) 29 13-40 U/L Alanine Aminotransferase (ALT) 18 7-40 U/L Alkaline Phosphatase 164 H 46-116 U/L Troponin I High Sensitivity 54 </=54 ng/L B-Type Natriuretic Peptide 792.19 0-100 pg/mL Total Protein 7.6 5.7-8.2 g/dL Albumin 4.4 3.2-4.8 g/dL Assessment IMP: 1) ESRD on dialysis 2) hyperkalemia 3) Eric dysrhythmia 4) acute diarrheal illness 5) volume deplete state 6) type 2 diabetes REC: - dialysis today for solute removal - noted ongoing cardiology evaluation should bradycardia not improve with correction of Acidosis and hyperkalemia. - we will continue to follow closely along with you. - discussed plan of care with patient's daughter at bedside. Thank you for the consultation. Plan discussed with: Daughter PAIGE PETER MD November 06, 2024 15:02
[2024-11-06] MEDS: SODIUM CHL 0.9% 1000 ML BAG XX ONE (15:30)
[2024-11-06] MEDS: hydrALAZINE HCL 20 MG/ML VL IV ONE (16:55)
[2024-11-06 19:25] VITALS: RESP 18; O2SAT 98
[2024-11-06] MEDS: ATORVASTATIN 20 MG TAB PO SCH (22:00)
[2024-11-06] MEDS: hydrALAZINE HCL 20 MG/ML VL IV PRN (22:56)
[2024-11-07] VITALS (8 sets, daily range): BP systolic 143–190; BP diastolic 64–91; PULSE 65–78; RESP 16–20; TEMP 98–98.6; O2SAT 93–100
[2024-11-07] MEDS: MORPHINE SULFATE INJ 2 MG/ml SYRG IV PRN (03:28)
[2024-11-07 06:05] LABS: Basophils # (auto) 0 10 ^3/uL (0-0.2); Basophils % (auto) 0.3 % (0.0-2.0); Eosinophils # (auto) 0.1 10 ^3/uL (0-0.8); Eosinophils % (auto) 1.2 % (0.0-7.0); Hematocrit 32.3 % (41.0-53.0); Hemoglobin 10.3 g/dL (13.5-17.5); Lymphocytes # (auto) 0.6 10 ^3/uL (0.4-5.4); Lymphocytes % (auto) 7.7 % (10.0-50.0); Mean Corpuscular Hemoglobin 27.9 pg (28.0-32.0); Mean Corpuscular Hgb Conc. 31.9 g/dL (32.0-36.0); Mean Corpuscular Volume 87.4 fL (80.0-100.0); Monocytes # (auto) 0.6 10 ^3/uL (0-1.3); Monocytes % (auto) 7.9 % (0.0-12.0); Neutrophils % (auto) 82.9 % (37.0-80.0); Platelet Count (auto) 92 10^3/uL (140-450); Red Blood Cells 3.69 10^6/uL (4.5-5.90); Red Cell Distribution Width 19.3 % (11.8-14.3); White Blood Cell 7.2 10^3/uL (4.4-10.8)
[2024-11-07 06:19] LABS: Alanine Aminotransferase 15 U/L (7-40); Albumin 4.1 g/dL (3.2-4.8); Anion Gap 13 (5-15); Aspartate Aminotransferase 30 U/L (13-40); BUN/Creatinine Ratio 7.8 (10.0-20.0); Calcium 9.7 mg/dL (8.7-10.4); Carbon Dioxide 23 mmol/L (20-31); Chloride 102 mmol/L (98-107); Sodium 138 mmol/L (136-145); Total Protein 7.1 g/dL (5.7-8.2)
[2024-11-07 06:20] LABS: Alkaline Phosphatase 146 U/L (46-116); Bilirubin, Total 0.7 mg/dL (0.2-1.0); Blood Urea Nitrogen 52 mg/dL (9-23); Glucose 150 mg/dL (74-106); Potassium 5.3 mmol/L (3.5-5.1)
[2024-11-07] MEDS: NIFEdipine ER 30 MG TAB PO SCH (10:05)
[2024-11-07] MEDS: cefTRIAXone 1GM/50ML D5W 50 ML IV SCH (10:06)
[2024-11-07] MEDS: AZITHROMYCIN 500MG/ 250ML 250 ML IV SCH (10:06)
--- NOTE | 2024-11-07 15:00 | DVHPN2 ---
Progress Note - Dictate Date Seen: November 07, 2024 Medical Necessity Reason Pt with a Central, PICC or Fol: No Subjective Awake and alert, bradydysrhythmia resolved. Patient's daughter at bedside vital signs Vital Sign Date Time Temp Pulse Resp B/P (MAP) Pulse Ox O2 Delivery O2 Flow Rate FiO2 11/07/24 13:00 98.6 65 18 167/91 (116) 94 98.6 11/07/24 08:00 Nasal Cannula* 2 28 Total Intake and Output 11/06/24 11/06/24 11/07/24 15:00 23:00 07:00 Intake Total 850.000 ml 0 ml Balance 850.000 ml 0 ml medications Current Medications Medications Dose Ordered Sig/Yovany Route Start Time Stop Time Status Last Admin Dose Admin Ondansetron HCl 4 mg Q4HP PRN IV 11/06/24 07:30 11/06/24 08:49 4 MG Enoxaparin Sodium 30 mg DAILY SC 11/06/24 10:00 11/06/24 10:09 30 MG Nitroglycerin 0.4 mg Q5MINP PRN SL 11/06/24 07:30 Morphine Sulfate 2 mg Q30M PRN IV 11/06/24 07:30 11/07/24 03:28 2 MG Azithromycin 250 ml @ 125 mls/hr DAILY IV 11/07/24 10:00 11/07/24 10:06 125 MLS/HR Ceftriaxone Sodium 50 ml @ 100 mls/hr DAILY@09 IV 11/07/24 09:00 11/07/24 10:06 100 MLS/HR Diagnostic Test (Pha) 1 strip Q6HR 11/06/24 12:00 11/07/24 11:58 1 STRIP Insulin Human Regular Q6HR SC 11/06/24 12:00 11/07/24 11:59 3 UNITS Dextrose 50 ml UD PRN IV 11/06/24 08:00 Aspirin 81 mg DAILY PO 11/06/24 10:00 11/07/24 10:06 81 MG Atorvastatin Calcium 40 mg HS PO 11/06/24 22:00 11/06/24 22:00 40 MG Hydralazine HCl 10 mg Q6HP PRN IV 11/06/24 18:00 11/06/24 22:56 10 MG Nifedipine 60 mg DAILY PO 11/07/24 10:00 11/07/24 10:05 60 MG objective Gen: nad heent: nc/at, mmm lungs: cta anteriorly cvs: no rub abd: soft, bowel sounds audible ext: no edema skin: no rash neuro: alert and oriented laboratory and microbiology Laboratory Tests 11/07/24 05:05 Test 11/07/24 05:05 Range/Units Serum Glucose 150 #H 74-106 mg/dL Assessment/Plan IMP: 1) ESRD on dialysis 2) hyperkalemia 3) Eric dysrhythmia 4) acute diarrheal illness 5) volume deplete state 6) type 2 diabetes REC: - dialysis again November 08 - UF as tolerated - patient to return back home to [facility] this week to resume chronic outpatient hemodialysis schedule. Plan discussed with: PAIGE Reeves MD November 07, 2024 15:00
--- NOTE | 2024-11-07 20:59 | DVHPN2 ---
Subjective in bed resting tolerated HD yesterday Changes from previous H/P or p: No Changes Eyes: No Pain, No Vision change, No Conjunctivae inflammation, No Eyelid inflammation, No Other, No Redness ENT: No Ear pain, No Ear discharge, No Nose pain, No Nose discharge, No Nose congestion, No Mouth pain, No Mouth swelling, No Throat pain, No Throat swelling, No Other Cardiovascular: No Chest Pain, No Palpitations, No Orthopnea, No Paroxysmal Noc. Dyspnea, No Edema, No Lt Headedness, No Other Respiratory: No Cough, No Dry, No Shortness of breath, No SOB with excertion, No Wheezing, No Hemoptysis, No Pleuritic Pain, No Sputum, No Other Gastrointestinal: No Nausea, No Vomiting, No Abdominal Pain, No Diarrhea, No Constipation, No Melena, No Hematochezia, No Other Genitourinary: No Dysuria, No Frequency, No Incontinence, No Hematuria, No Retention, No Other Musculoskeletal: No other, No neck pain, No shoulder pain, No arm pain, No back pain, No hand pain, No leg pain, No foot pain Skin: No Rash, No Lesions, No Jaundice, No Bruising, No Other Objective Vitals Vital Signs Date Time Temp Pulse Resp B/P (MAP) Pulse Ox O2 Delivery O2 Flow Rate FiO2 11/07/24 20:00 Room Air* 0 21 11/07/24 16:38 98.0 69 16 169/84 (112) 93 98.0 Intake/Output Intake and Output 11/07/24 07:00 Intake Total 850.000 ml Balance 850.000 ml Intake Oral 0 ml IV Total 850.000 ml General Appearance: Alert, Oriented X3 Lungs: Clear to auscultation Cardiovascular: Regular rate, Normal S1, Normal S2 Medications Current Medications Medications Dose Ordered Sig/Yovany Route Start Time Stop Time Status Last Admin Dose Admin Ondansetron HCl 4 mg Q4HP PRN IV 11/06/24 07:30 11/06/24 08:49 4 MG Enoxaparin Sodium 30 mg DAILY SC 11/06/24 10:00 11/06/24 10:09 30 MG Nitroglycerin 0.4 mg Q5MINP PRN SL 11/06/24 07:30 Morphine Sulfate 2 mg Q30M PRN IV 11/06/24 07:30 11/07/24 03:28 2 MG Azithromycin 250 ml @ 125 mls/hr DAILY IV 11/07/24 10:00 11/07/24 10:06 125 MLS/HR Ceftriaxone Sodium 50 ml @ 100 mls/hr DAILY@09 IV 11/07/24 09:00 11/07/24 10:06 100 MLS/HR Diagnostic Test (Pha) 1 strip Q6HR 11/06/24 12:00 11/07/24 17:56 1 STRIP Insulin Human Regular Q6HR SC 11/06/24 12:00 11/07/24 17:56 2 UNITS Dextrose 50 ml UD PRN IV 11/06/24 08:00 Aspirin 81 mg DAILY PO 11/06/24 10:00 11/07/24 10:06 81 MG Atorvastatin Calcium 40 mg HS PO 11/06/24 22:00 11/06/24 22:00 40 MG Hydralazine HCl 10 mg Q6HP PRN IV 11/06/24 18:00 11/06/24 22:56 10 MG Nifedipine 60 mg DAILY PO 11/07/24 10:00 11/07/24 10:05 60 MG Laboratory Results Laboratory Tests 11/07/24 05:05 Chemistry Test 11/07/24 05:05 Albumin 4.1 g/dL (3.2-4.8) Calcium Level 9.7 mg/dL (8.7-10.4) Total Protein 7.1 g/dL (5.7-8.2) LFT Test 11/07/24 05:05 Alanine Aminotransferase (ALT) 15 U/L (7-40) Alkaline Phosphatase 146 U/L (46-116) H Aspartate Amino Transferase (AST) 30 U/L (13-40) Total Bilirubin 0.7 mg/dL (0.2-1.0) Microbiology Microbiology Date/Time Source Procedure Growth Status 11/06/24 00:51 Blood Blood Culture - Preliminary NO GROWTH AFTER 24 HOURS OF INCUBATION. Resulted Assessment/Plan Assessment/Plan # acute metabolic encephalopathy, now alert and oriented # syncope and collapse to rule out cardiac etiology # rule out carotid stenosis Resolved now # s/p CPR with ROSC # bradycardia/ junctional rhythm in30s # Elevated troponin, likely demand ischemia Off dopamine Cardiology consult Echocardiogram # cardiomegaly with mild pulmonary vascular congestion # possible pneumonia Empiric antibiotic ceftriaxone and azithromycin until culture is back Panculture Breathing treatment p.r.n. O2 supplement # ESRD on HD # hyperkalemia Hyperkalemia protocol Nephrology consult On HD and tolerated # hypertension Monitor BP avoid antihypertensive medication given soft BP # diabetes type 2 Insulin sliding scale Check A1c # hyperlipidemia Continue with statins check lipid panel Plan discussed with: Patient Date of Service: November 07, 2024 Billing Provider: JALEESA LUDWIG MD Common Visit Codes: [id number] INP/OBS CARE(HIGH) JALEESA LUDWIG MD November 07, 2024 20:59
[2024-11-08] VITALS (7 sets, daily range): BP systolic 149–185; BP diastolic 71–97; PULSE 66–73; RESP 16–18; TEMP 98–98.7; O2SAT 93–98
[2024-11-08 09:54] LABS: Hematocrit 32.2 % (41.0-53.0); Hemoglobin 10.3 g/dL (13.5-17.5)
[2024-11-08] MEDS: SODIUM CHL 0.9% 1000 ML BAG XX ONE (10:35)
--- NOTE | 2024-11-08 13:14 | ECG ---
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 Electronically Signed On 11-13-2024 21:40:36 PDT by Bishnu Styles Please click the below link to view image of tracing.
[2024-11-08] MEDS ORDERED: cloNIDine HCL 0.1 MG TAB PO STA (16:46)
[2024-11-08] MEDS ORDERED: cloNIDine HCL 0.1 MG TAB PO SCH (17:00)
[2024-11-08] MEDS: NIFEdipine ER 30 MG TAB PO ONE (17:05)
[2024-11-08] MEDS ORDERED: NIFE90TA75 PO (18:44)
[2024-11-08] MEDS ORDERED: CLON0.1T PO (18:44)
--- NOTE | 2024-11-08 19:37 | DVHPN2 ---
Progress Note - Dictate Date Seen: November 08, 2024 Medical Necessity Reason Pt with a Central, PICC or Fol: No Subjective Late entry, patient seen and examined earlier today. He was on dialysis. vital signs Vital Sign Date Time Temp Pulse Resp B/P (MAP) Pulse Ox O2 Delivery O2 Flow Rate FiO2 11/08/24 17:55 73 160/83 (108) 11/08/24 17:19 98.0 16 96 11/08/24 08:00 Room Air* 0 21 Total Intake and Output 11/07/24 11/07/24 11/08/24 15:00 23:00 07:00 Intake Total 2170 ml 600 ml Balance 2170 ml 600 ml objective Gen: nad heent: nc/at, mmm lungs: cta anteriorly cvs: no rub abd: soft, bowel sounds audible ext: no edema skin: no rash neuro: alert and oriented laboratory and microbiology Laboratory Tests 11/08/24 09:33 11/07/24 05:05 Test 11/07/24 05:05 Range/Units Serum Glucose 150 #H 74-106 mg/dL Assessment/Plan IMP: 1) ESRD on dialysis 2) hyperkalemia 3) Eric dysrhythmia 4) acute diarrheal illness 5) volume deplete state 6) type 2 diabetes REC: Clinically stable for discharge from Nephrology perspective. Patient states that he will return to chronic outpatient dialysis schedule at his home clinic in [facility]. Plan discussed with: PAIGE Reeves MD November 08, 2024 19:37
[2024-11-08] MEDS ORDERED: EPOETIN ALFA-EPBX 4,000 UNIT/ML VIAL SC ONE (21:00)
--- NOTE | 2024-11-10 07:59 | ECG ---
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
== END 2024-11-08 18:17 | disposition home or self-care (01) | DRG 422 ==
LOC: EDBD 00:25 → ER 00:25 → OVERFLOW 07:19 → TELE-WESTW 11-07 02:41
PROVIDERS: ADMIT Hospitalist; ATTEND Hospitalist
PROC: 5A12012 Performance of Cardiac Output, Single, Manual (ICD-10-PCS; principal; 2024-11-06)
PROC: 5A1D70Z Performance of Urinary Filtration, Intermittent, Less than 6 Hours Per Day (ICD-10-PCS; 2024-11-06)
PROC: 5A1D70Z Performance of Urinary Filtration, Intermittent, Less than 6 Hours Per Day (ICD-10-PCS; 2024-11-08)
DX: E87.5 Hyperkalemia (principal); E86.9 Volume depletion, unspecified; I46.9 Cardiac arrest, cause unspecified; G93.41 Metabolic encephalopathy; I50.33 Acute on chronic diastolic (congestive) heart failure; J15.69 Pneumonia due to other Gram-negative bacteria; I21.A1 Myocardial infarction type 2; N18.6 End stage renal disease; I27.20 Pulmonary hypertension, unspecified; E11.22 Type 2 diabetes mellitus with diabetic chronic kidney disease; E78.5 Hyperlipidemia, unspecified; I45.5 Other specified heart block; I49.8 Other specified cardiac arrhythmias; R00.1 Bradycardia, unspecified; R09.89 Other specified symptoms and signs involving the circulatory and respiratory systems; Z79.4 Long term (current) use of insulin; Z79.899 Other long term (current) drug therapy; Z99.2 Dependence on renal dialysis; I13.2 Hypertensive heart and chronic kidney disease with heart failure and with stage 5 chronic kidney disease, or end stage renal disease; E11.65 Type 2 diabetes mellitus with hyperglycemia
CPT/HCPCS: 36415; 70450; 71045; 80053; 80061; 82962; 83036; 83605; 83880; 84132; 84443; 84484; 85014; 85018; 85025; 85610; 85730; 87040; 90935; 93005; 93306; 93886; 94640; 96365; G0378; J0461; J1642; J1815; J2405